=== PATIENT | male | born 1950 | race Caucasian/White ===

== ENCOUNTER 2016-12-31 08:15 | Outpatient (RCR) | payer MEDICARE, OTHER ==
--- NOTE | 2016-10-23 12:54 | PT/OT/ST INITIAL EVALUATION ---
Department of Health and Human Services Form Approved [facility] Care Financing Administration OMB No. [id number] PLAN OF CARE/ASSESSMENT FOR OUTPATIENT REHABILITATION (Complete for Initial Claims Only) 1. PATIENT'S NAME Milton Gordon 2. ACC # [id number] [facility]. [facility] [id number] 4. PROVIDER NO. [id number] 5. TYPE: PT 6. PRIOR HOSPITALIZATION NA 7. PRIMARY DX Status post left knee scope 8. SECONDARY DX NA 9. ONSET DATE 10/15/16 10. REFERRAL DATE NA 11. SOC. DATE 10/19/2016 12. TIME OF EVAL 8:58 a.m. 12. REFERRING PHYSICIAN Dr. Phil Vasquez 13. CHARGES/UNITS NA 14. G CODES [id number] 15. PRIOR LEVEL OF FUNCTION; PERTINENT HISTORY (Prior therapy results, reason for referral.) S: Prior to therapy, the patient did consent to today's evaluation and treatment. The patient is a 66-year-old male referred to physical therapy by Dr. Vasquez to address status post left knee scope. Personal health rating: The patient does rate his overall and general health as excellent. Description/mechanism of injury: The patient states he has had a history of knee pain since September 2016 where he thinks a cyst ruptured while running. The patient does run at least 3 days a week for 4 miles per day. The patient was having intermittent knee pain at all times culminating after September 2016 and difficulty bending the knee and ambulating up and down stairs with a step-two pattern. The patient states he is impatient to get better and would like to return to running. Prior level of function: Includes the patient being unlimited in all activity. Current level of function: Includes the patient being limited in all activity, being stiff and swollen and difficulty with ambulation for long distances and ambulating up and down stairs. Therapy History: No previous physical therapy has been performed for this condition. Obstacles to delivery of care: No obstacles of delivery of care are observed. Pain level: Maximum pain level is 1/10. The patient describes the pain as an aching sensation. Aggravating factors: Include increase use of the left lower extremity. Relieving factors: Include ice, which he is doing 3 to 4 times per day. Diagnostic testing: No diagnostic tests have been performed since surgery. Past medical history: None significant is reported by the patient. Current medications: The patient is taking no prescription medications at this time. Patient's Goal: The patient's goal for physical therapy is to return to normal activity, especially running. 16. INITIAL ASSESSMENT/SAFETY PRECAUTIONS/MEDICAL COMPLICATIONS (Level of function at start of care. Be specific, use objective measures, list problems.) O: APPEARANCE AND OBSERVATION: The patient presents with a significant antalgic gait pattern with significantly decreased in knee flexibility throughout the gait cycle and decreased heel strike on the left. Pt also has valgus deformity at the left knee with increased external rotation of the left foot with gait. PALPATION: With palpation, the patient does have increased heat at the left knee and has 1+ pitting edema in the left lower extremity. CIRCUMFERENTIAL MEASUREMENTS: Circumferential measures were taken throughout bilateral lower extremity 10 cm superior to the joint line, at the knee joint line and 10 cm inferior to the joint line. These measurements on the left are 46.6, 40.1 and 37.3 cm respectively. These measurements on the right are 43.6, 38, and 37 cm respectively. Superior and inferior glide at the patella is decreased approximately 25%. The patient is specifically tender to palpation at the inferior pole of the patella. OUTCOME ASSESSMENTS: Lower Extremity Functional Index which scored 45/80. RANGE OF MOTION/FLEXIBILITY: Throughout the right knee is 2 degrees of hyperextension to 141 degrees of flexion. Throughout the left knee is lacking 6 degrees from full extension to 76 degrees of flexion. Following today's treatment the patient was able to flex the left knee to 92 degrees. STRENGTH: Throughout the right lower extremity is grossly 5/5 throughout with the exception of hip abduction, which is 4/5. Throughout the left lower extremity knee motion is grossly 3+/5 for hamstring and quadriceps. Hip strength is grossly 4-/5 with the exception of hip abduction, which is 3+/5 and ankle motions are 5/5. TODAY'S TREATMENT: Following the initial evaluation therapeutic exercise was performed and issued as a home exercise program. The vasopneumatic device with cold and compression was then performed throughout the left knee. 17. INITIAL POC: (Specify procedures, modalities, short and chcf goals) A: The patient presents to physical therapy with diagnosis of status post left knee scope with resultant decreased active range of motion, decreased gait, decreased strength, and decreased swelling. PROGNOSIS: This patient does have a good prognosis with regular therapy attendance and compliance with home exercise program. This patient is expected to benefit from physical therapy services in order to have increased active range of motion, decreased swelling and pain for return to full prior activity. GOALS: 1. The patient to be independent and compliant with home exercise program in 1 week. 2. The patient with active range of motion of left knee from 0 degrees to 120 degrees in 3 weeks to allow ambulation up and down stairs without restriction. 3. The patient with left lower extremity strength at least 4+/5 throughout in 5 weeks to allow return to running safely. 4. The patient with a Lower Extremity Functional Index score at least 70/80 in 6 weeks to allow return to lawn care. INFORMED CONSENT: The diagnosis, prognosis, treatment plan, risks and expected outcomes were discussed with the patient and the patient did agree to today's established plan of care. P: Plan to treat patient 2 times per week for 6 weeks in order to address status post left knee scope. Therapeutic treatments to include modalities to decrease pain, inflammation and swelling. Manual therapy techniques as indicated. Therapeutic exercise targeting active range of motion and knee stabilization, as well as hip stabilization activities, gait training, balance proprioceptive training and patient education in home exercise program to be advanced as warranted. 18. FREQUENCY 2 times per week 19. DURATION 6 weeks 20. FUNCTIONAL LEVEL (End of claim period) 21. PHYSICIAN SIGNATURE ? ON FILE OR ENTER HERE: 22. DATE: I certify the need for these services furnished under this plan of care and if for partial hospitalization. 23. CERTIFICATION FROM [facility]ROUGH [facility]
[~2016-12-31 08:15] MED LIST: GLUC100016 PO
== END 2017-01-11 12:05 | disposition home or self-care (01) ==
LOC: PT 08:15
PROVIDERS: ATTEND Orthopaedic Surgery
DX: Z98.890 Other specified postprocedural states (principal); M25.662 Stiffness of left knee, not elsewhere classified
CPT/HCPCS: 97016; 97110; 97112; 97140; 97161; G8978; G8979; G8980